=== PATIENT | female | born 1950 | race Two or more races ===

== ENCOUNTER 2016-04-16 09:55 | Outpatient (CLI) | payer MEDICARE, MEDICAID ==
[~2016-04-16 09:55] MED LIST: CALC0.5C2 PO; CALC667C6 PO; CYAN10009 PO; CYAN500T4 PO; DOCU-170 PO; ERGO400T7 PO; FLUO20TA28 PO; FOLI1TAB16 PO; FURO20TA4 PO; METO50TA3 PO; MIRABEGRON 25 MG PO; PREG50CA PO; PYRI50TA74 PO; SIMV40TA5 PO; VIT1TABL46 PO
== END 2016-04-16 23:59 | disposition home or self-care (01) ==
LOC: WOU 09:55
PROVIDERS: ATTEND Podiatrist Foot & Ankle Surgery
DX: Z51.89 Encounter for other specified aftercare (principal); E11.42 Type 2 diabetes mellitus with diabetic polyneuropathy; E11.21 Type 2 diabetes mellitus with diabetic nephropathy; B35.1 Tinea unguium; R60.0 Localized edema
CPT/HCPCS: G0463

== ENCOUNTER 2016-06-11 10:31 | Outpatient (CLI) | payer MEDICARE, MEDICAID | END 2016-06-11 23:59 | disposition home or self-care (01) | LOC: WOU 10:31 | PROVIDERS: ATTEND Podiatrist Foot & Ankle Surgery | DX: E11.42 Type 2 diabetes mellitus with diabetic polyneuropathy (principal); L60.3 Nail dystrophy; B35.1 Tinea unguium; L85.3 Xerosis cutis | CPT/HCPCS: G0463 ==

== ENCOUNTER 2016-08-27 08:50 | Outpatient (CLI) | payer MEDICARE, MEDICAID | END 2016-08-27 23:59 | disposition home or self-care (01) | LOC: WOU 08:50 | PROVIDERS: ATTEND Podiatrist Foot & Ankle Surgery | DX: E11.42 Type 2 diabetes mellitus with diabetic polyneuropathy (principal); E11.21 Type 2 diabetes mellitus with diabetic nephropathy; B35.1 Tinea unguium | CPT/HCPCS: G0463 ==

== ENCOUNTER 2017-02-11 11:40 | Outpatient (CLI) | payer MEDICARE, MEDICAID | END 2017-02-11 23:59 | disposition home or self-care (01) | LOC: WOU 11:40 | PROVIDERS: ATTEND Podiatrist Foot & Ankle Surgery | DX: E11.42 Type 2 diabetes mellitus with diabetic polyneuropathy (principal); B35.1 Tinea unguium; E11.22 Type 2 diabetes mellitus with diabetic chronic kidney disease; N18.6 End stage renal disease; Z99.2 Dependence on renal dialysis | CPT/HCPCS: G0463 ==

== ENCOUNTER 2017-07-01 09:05 | Outpatient (CLI) | payer MEDICARE, MEDICAID ==
[~2017-07-01 09:05] MED LIST changes: +CALC0.5C11 PO; -CALC0.5C2 PO; -DOCU-170 PO; +DOCU100C36 PO; +METO50TA16 PO; -METO50TA3 PO
== END 2017-07-01 23:59 | disposition home or self-care (01) ==
LOC: WOU 09:05
PROVIDERS: ATTEND Podiatrist Foot & Ankle Surgery
DX: L60.0 Ingrowing nail (principal); E11.65 Type 2 diabetes mellitus with hyperglycemia; E11.40 Type 2 diabetes mellitus with diabetic neuropathy, unspecified; E11.29 Type 2 diabetes mellitus with other diabetic kidney complication; N28.9 Disorder of kidney and ureter, unspecified; Z99.2 Dependence on renal dialysis; R60.9 Edema, unspecified; B35.1 Tinea unguium; Z86.31 Personal history of diabetic foot ulcer
CPT/HCPCS: 11730; 11732; A6402